=== PATIENT | female | born 1960 | race Hispanic/Latino ===

== ENCOUNTER → 2025-06-09 09:24 | Outpatient (REF) | payer OTHER, SELFPAY ==
[2025-06-09 10:57] LABS: Hematocrit 42.7 % (37.0-47.0); Hemoglobin 14.8 g/dL (12.0-16.0); Mean Corp Hgb Conc. 34.7 g/dL (33.0-37.0); Mean Corpuscular Volume 88.6 fL (81.0-99.0); Nucleated Red Blood Cells % 0 %; Platelet Count 182 10^3/uL (130-400); Red Cell Dist. Width 12.5 % (11.5-14.5)
[2025-06-09 11:24] LABS: ALT (SGPT) 26 U/L (0-35); AST (SGOT) 23 U/L (14-36); Albumin 4.1 g/dl (3.5-5.0); Alkaline Phosphatase 130 U/L (38-126); Blood Urea Nitrogen 16 mg/dl (7-17); Calcium 9.7 mg/dl (8.4-10.2); Carbon Dioxide 22 mmol/L (22-30); Chloride 102 mmol/L (98-107); Glucose 364 mg/dl (70-99); HDL Cholesterol 42 mg/dl; LDL Cholesterol, Calculated 110 mg/dl; Potassium 3.9 mmol/L (3.5-5.1); Sodium 133 mmol/L (135-145); Total Protein 7.2 g/dl (6.3-8.2); Very Low Density Lipoprotein 78 mg/dl (0-30); eGFR > 60.00
[2025-06-09 11:30] LABS: Urine Character Clear (Clear)
[2025-06-09 11:46] LABS: Glycohemoglobin (HgbA1c) 10.9 % (4.0-5.6)
[2025-06-09 12:14] LABS: Microalb - Urine Creatinine 39.500 mg/dl
[2025-06-09 12:39] LABS: Microalbumin, Random Urine 35.8 mg/dl (0.6-1.7); Urine Urothelial Cell 0-2 /LPF (FEW); Urine White Cell 0-2 /HPF (0-5)
== END ==
LOC: REG 09:24
DX: E11.65 Type 2 diabetes mellitus with hyperglycemia (principal); E03.9 Hypothyroidism, unspecified
CPT/HCPCS: 36415; 80053; 80061; 81003; 81015; 82043; 82570; 83036; 84439; 84443; 85025

== ENCOUNTER → 2025-08-25 09:53 | Outpatient (REF) | payer OTHER, SELFPAY ==
[2025-08-25 10:43] LABS: Urine Character Clear (Clear)
[2025-08-25 10:50] LABS: Urine White Cell 0-2 /HPF (0-5)
[2025-08-25 11:38] LABS: Microalb - Urine Creatinine 85.300 mg/dl
[2025-08-25 11:44] LABS: Hematocrit 40.6 % (37.0-47.0); Hemoglobin 14.0 g/dL (12.0-16.0); Mean Corp Hgb Conc. 34.5 g/dL (33.0-37.0); Mean Corpuscular Volume 90.0 fL (81.0-99.0); Nucleated Red Blood Cells % 0 %; Platelet Count 206 10^3/uL (130-400); Red Cell Dist. Width 12.9 % (11.5-14.5)
[2025-08-25 12:19] LABS: Microalbumin, Random Urine 32.4 mg/dl (0.6-1.7)
[2025-08-25 13:46] LABS: Glycohemoglobin (HgbA1c) 8.2 % (4.0-5.9)
[2025-08-25 16:18] LABS: ALT (SGPT) 30 U/L (0-35); AST (SGOT) 28 U/L (14-36); Albumin 4.5 g/dl (3.5-5.0); Alkaline Phosphatase 80 U/L (38-126); Blood Urea Nitrogen 17 mg/dl (7-17); Calcium 10.0 mg/dl (8.4-10.2); Carbon Dioxide 21 mmol/L (22-30); Chloride 107 mmol/L (98-107); Glucose 172 mg/dl (70-99); HDL Cholesterol 41 mg/dl; LDL Cholesterol, Calculated 77 mg/dl; Potassium 4.3 mmol/L (3.5-5.1); Sodium 137 mmol/L (135-145); Total Protein 7.8 g/dl (6.3-8.2); Very Low Density Lipoprotein 48 mg/dl (0-30); eGFR > 60.00
== END ==
LOC: REG 09:53
DX: E11.65 Type 2 diabetes mellitus with hyperglycemia (principal); I10 Essential (primary) hypertension; E66.9 Obesity, unspecified; E78.2 Mixed hyperlipidemia; E03.9 Hypothyroidism, unspecified
CPT/HCPCS: 36415; 80053; 80061; 81003; 81015; 82043; 82570; 83036; 84439; 84443; 85025